=== PATIENT | male | born 1975 | race Caucasian/White ===

== ENCOUNTER 2017-02-28 10:37 | Emergency (ER) | payer OTHER ==
[2017-02-28 10:41] VITALS: O2SAT 96
[2017-02-28] MEDS ORDERED: fentaNYL 100 MCG/2 ML INJ ONE (11:12)
[2017-02-28] MEDS ORDERED: fentaNYL 100 MCG/2 ML INJ IVP ONE (11:15)
[2017-02-28] MEDS ORDERED: TDAP ADULT 0.5 ML INJ (BOOSTRIX) IM ONE (11:58)
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
[2017-02-28 12:25] VITALS: BP 109/56; PULSE 52; RESP 14; TEMP 98.2
== END 2017-02-28 12:25 | disposition home or self-care (01) ==
PROC: 0RSKXZZ Reposition Left Shoulder Joint, External Approach (ICD-10-PCS; principal; 2017-02-28)
DX: S43.005A Unspecified dislocation of left shoulder joint, initial encounter (principal); T14.8 Other injury of unspecified body region; Z23 Encounter for immunization; V18.0XXA Pedal cycle driver injured in noncollision transport accident in nontraffic accident, initial encounter; Y92.410 Unspecified street and highway as the place of occurrence of the external cause; Y99.8 Other external cause status; Y93.89 Activity, other specified
CPT/HCPCS: 96374; J3010

== ENCOUNTER 2017-04-09 12:25 | Emergency (ER) | payer OTHER ==
[2017-04-09 12:34] VITALS: TEMP 97.9
[2017-04-09] MEDS ORDERED: NS 1,000 ML IV ONE (13:20)
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
[2017-04-09 13:45] LABS: % IMMATURE GRANULYOCYTES 0.5 % (0.0-1.1); ABSOLUTE IMMATURE GRANULOCYTES 0.03 10^3/uL (0.00-0.10); ADD DIFF? NO; ADD MORPH? NO; ADD SCAN? NO; ATYPICAL LYMPHOCYTE FLAG 20 (0-99); FRAGMENT RBC FLAG 0 (0-99); HEMATOCRIT 43.8 % (40.0-51.0); HEMOGLOBIN 15.2 g/dL (13.7-17.5); LEFT SHIFT FLG 0 (0-99); LIPEMIA HEMOLYSIS FLAG 90 (0-99); MEAN CELL HEMOGLOBIN 30.6 pg (27.9-34.1); MEAN CELL HEMOGLOBIN CONCENTR. 34.7 g/dL (32.4-36.7); MEAN CELL VOLUME 88.1 fL (81.5-99.8); MEAN PLATELET VOLUME 9.5 fL (8.7-11.7); PLATELET CLUMPS FLAG 0 (0-99); PLATELET COUNT 220 10^3/uL (150-400); RED BLOOD CELL COUNT 4.97 10^6/uL (4.40-6.38); RED CELL DISTRIBUTION WIDTH 12.1 % (11.5-15.2)
--- NOTE | 2017-04-09 13:46 | CPEKG ---
Heart Rate: 48 RR Interval: 1250 P-R Interval: 180 QRSD Interval: 90 QT Interval: 444 QTC Interval: 397 P [place]: 60 QRS [place]: 65 T Wave [place]: 45 EKG Severity - ABNORMAL ECG - EKG Impression: SINUS BRADYCARDIA EKG Impression: Slight ST elevation diffusely Electronically Signed By: Tawanda Camarena 09-Apr-2017 13:51:14
[2017-04-09 13:54] LABS: INR 1.02 (0.83-1.16); PROTIME(PATIENT) 13.3 SEC (12.0-15.0)
[2017-04-09 13:55] LABS: APTT 27.9 SEC (23.0-38.0)
[2017-04-09 14:00] LABS: ANION GAP 14 mEq/L (8-16); CARBON DIOXIDE 20 mEq/l (22-31); CHLORIDE 109 mEq/L (97-110); GLOMERULAR FILTRATION RATE > 60; GLUCOSE 93 mg/dL (70-100); POTASSIUM 4.1 mEq/L (3.5-5.2); SODIUM 143 mEq/L (134-144)
[2017-04-09 14:41] LABS: TROPONIN I < 0.012 ng/mL (0-0.034)
[2017-04-09 14:45] LABS: COLOR YELLOW; LEUKOCYTE ESTERASE,URINE NEGATIVE (NEGATIVE); NITRITE,URINE NEGATIVE (NEGATIVE)
[2017-04-09 14:48] LABS: RBC,URINE NONE SEEN /hpf (0-3)
[2017-04-09 15:02] VITALS: BP 113/79; PULSE 58; RESP 16; O2SAT 98
== END 2017-04-09 15:01 | disposition home or self-care (01) ==
DX: F41.9 Anxiety disorder, unspecified (principal); E86.9 Volume depletion, unspecified